=== PATIENT | male | born 1970 | race African-American/Black ===

== ENCOUNTER → 2019-06-22 | Outpatient (CLI) | payer OTHER ==
--- NOTE | 2019-06-23 04:54 | REP ---
Clinical: Chronic hepatitis B. Technique: Real time rangel scale and color evaluation using curved array transducer. Findings: Liver demonstrates diffuse fatty infiltration with focal fatty sparing adjacent to the gallbladder fossa. The pancreas is incompletely evaluated but visualized portions appear normal. The gallbladder is unremarkable and without gallstones, wall thickening, or pericholecystic fluid. No biliary ductal dilatation is appreciated and the common bile duct measures 3.4 mm diameter. The right kidney is normal in reniform shape without hydronephrosis and measures 9.6 x 5.0 x 4.6 cm. No ascites in the visualized right upper quadrant. Impression: Hepatic steatosis with areas of focal fatty sparing.
== END ==
LOC: M WHC 12:18
PROVIDERS: ATTEND Internal Medicine Infectious Disease
DX: B18.1 Chronic viral hepatitis B without delta-agent (principal); K75.81 Nonalcoholic steatohepatitis (NASH)

== ENCOUNTER → 2019-06-22 | Outpatient (REF) | payer OTHER ==
[2019-06-22 13:26] LABS: HEMATOCRIT 45.2 % (42.0-52.0); HEMOGLOBIN 15.2 g/dl (13.5-17.5); MEAN CORPUSCULAR HEMOGLOBIN 27.5 pg (27.0-33.0); MEAN CORPUSCULAR HGB CONC 33.6 g/dl (32.0-36.5); MEAN CORPUSCULAR VOLUME 81.7 fl (80.0-96.0); PLATELET COUNT, AUTOMATED 128 10^3/uL (150-450); RED BLOOD COUNT 5.53 10^6/uL (4.30-6.10); WHITE BLOOD COUNT 3.9 10^3/uL (4.0-10.0)
[2019-06-22 13:41] LABS: INR 1.06; PROTHROMBIN TIME 13.5 SECONDS (11.8-14.0)
[2019-06-22 13:52] LABS: ALBUMIN 4.2 GM/DL (3.2-5.2); ALT/SGPT 47 U/L (12-78); BILIRUBIN,TOTAL 1.5 MG/DL (0.2-1.0); BLOOD UREA NITROGEN 10 MG/DL (7-18); CALCIUM LEVEL 9.7 MG/DL (8.5-10.1); CARBON DIOXIDE LEVEL 30 MEQ/L (21-32); CHLORIDE LEVEL 105 MEQ/L (98-107); CREATININE FOR GFR 0.88 MG/DL (0.70-1.30); GLOMERULAR FILTRATION RATE > 60.0 (>60); GLUCOSE, FASTING 78 MG/DL (70-100); POTASSIUM SERUM 4.5 MEQ/L (3.5-5.1); SODIUM LEVEL 140 MEQ/L (136-145); TOTAL PROTEIN 7.5 GM/DL (6.4-8.2)
[2019-06-23 11:03] LABS: HEPATITIS C VIRUS ABY INDEX 0.1 INDEX (<0.8)
[2019-06-23 11:11] LABS: HIV 1&2 SCREEN CENTAUR NEGATIVE (NEGATIVE)
[2019-06-30 00:10] LABS: AFP TUMOR TOTAL 4.7 ng/mL (0.0-8.0); HEPATITIS A IgG TOTAL Positive (Negative); HEPATITIS BE ANTIBODY Positive (Negative); HEPATITIS BE ANTIGEN Negative (Negative); VITAMIN D 1,25 DIHYDROXY 62.8 pg/mL (19.9-79.3)
== END ==
LOC: M SFHCPLAZ 12:07
PROVIDERS: ATTEND Internal Medicine Infectious Disease
DX: B18.1 Chronic viral hepatitis B without delta-agent (principal); E55.9 Vitamin D deficiency, unspecified; K75.81 Nonalcoholic steatohepatitis (NASH)
CPT/HCPCS: 36415; 76705; 80053; 82107; 82652; 85027; 85610; 86692; 86707; 86708; 86803; 87350; 87389; G0463